=== PATIENT | female | born 2000 | race African-American/Black ===

== ENCOUNTER 2025-02-06 10:48 | Emergency (ER) | payer MEDICAID ==
[~2025-02-06] VITALS: Ht 162.6 cm; Wt 70.0 kg
[2025-02-06 11:00] VITALS: TEMP 98.6; O2SAT 98
[2025-02-06] MEDS: LIDOCAINE HCL 1% 20ML VIAL INL ONE (12:08)
[2025-02-06] MEDS: KETOROLAC 15MG/ML VIAL IM ONE (12:08)
[2025-02-06] MEDS: BACITRACIN ZINC OINT UDPKT TOP ONE (12:09)
[2025-02-06] MEDS: TETANUS, DIPHTHERIA, PERTUSSIS VAC/PF 0.5ML (>10YR OLD) IM ONE (12:09)
[2025-02-06] MEDS ORDERED: IBUP-1455 MT (13:40)
[2025-02-06] MEDS ORDERED: BO1 TP (13:40)
[2025-02-06] MEDS: ACETAMINOPHEN 325MG TABLET PO ONE (14:17)
[2025-02-06 14:19] VITALS: BP 128/72; PULSE 72; RESP 14; O2SAT 98
== END 2025-02-06 14:20 | disposition home or self-care (01) ==
LOC: ER 10:48
DX: S61.216A Laceration without foreign body of right little finger without damage to nail, initial encounter (principal); S61.214A Laceration without foreign body of right ring finger without damage to nail, initial encounter; X58.XXXA Exposure to other specified factors, initial encounter; Y93.89 Activity, other specified; Y92.89 Other specified places as the place of occurrence of the external cause; Y99.8 Other external cause status
CPT/HCPCS: 73130; 90715; 12002; 90471; 96372; 99284; J1885; J2003; Z7610